=== PATIENT | male | born 1940 | race Caucasian/White ===

== ENCOUNTER 2019-01-01 04:44 | Inpatient (IN) ==
[2019-01-01] MEDS ORDERED: DOCUSATE SODIUM 100 MG CAPSULE PO PRN (07:18)
[2019-01-01] MEDS ORDERED: ONDANSETRON 4 MG/2 ML VIAL IV PRN (07:18)
[2019-01-01 07:49] LABS: Basophils # 0.1 10*3/uL (0.0-0.2); Basophils % 0.5 % (0.0-0.8); Eosinophils # 0.2 10*3/uL (0.0-0.87); Eosinophils % 1.5 % (0.00-10.9); Hematocrit 44.7 VOL% (42.0-52.0); Hemoglobin 14.7 GM/DL (14.0-18.0); Immature Granulocytes % 0.5 %; Immature Granulocytes Absolute 0.06 #; Lymphocytes # 1.2 10*3/uL (1.4-4.0); Lymphocytes % 10.4 % (21.2-54.2); Mean Corpuscular HGB Conc 32.9 GM/DL (32-36); Mean Corpuscular Hemoglobin 33 PG (27-34); Mean Corpuscular Volume 99.1 FL (87-102); Mean Platelet Volume 10.2 FL (9.6-12.0); Monocytes # 1.3 10*3/uL (0.11-0.8); Monocytes % 11.3 % (1.7-12.7); Neutrophils % 75.8 % (38.7-73.9); Platelet Count 121 T/CUMM (130-400); Red Blood Count 4.51 MC/CUMM (3.8-5.5); Red Cell Distribution Width 13.9 % (9.3-17.3); White Blood Count 11.8 T/CUMM (4-12)
[2019-01-01 08:28] LABS: Albumin 3.5 G/DL (3.4-5.0); Bilirubin,Total 1.3 MG/DL (0.2-1.0); Osmolality,Calculated 278.7 MOS/KG (273-304); Potassium 4.2 MMOL/L (3.5-5.1); Total Protein 7.1 G/DL (6.4-8.3)
[2019-01-01 08:47] LABS: Thyroid Stimulating Hormone 2.11 uIU/ml (0.358-3.74)
[2019-01-01] MEDS: ASPIRIN EC 81 MG TABLET PO SCH (08:55)
[2019-01-01] MEDS: CARVEDILOL 3.125 MG TABLET PO SCH ×2 (08:57→21:19)
[2019-01-01] MEDS: LOSARTAN 25 MG TABLET PO SCH (08:57)
[2019-01-01] MEDS: PANTOPRAZOLE 40 MG TABLET PO SCH (08:57)
[2019-01-01] MEDS ORDERED: KETOROLAC 30 MG/1 ML VIAL IV ONE (11:07)
[2019-01-01] MEDS ORDERED: ACETAMINOPHEN 325 MG TABLET PO PRN (13:01)
[2019-01-01] MEDS: cephALEXin 500 MG CAPSULE PO SCH ×2 (13:21→21:19)
[2019-01-01] MEDS: PREGABALIN 50 MG CAPSULE PO SCH (21:18)
[2019-01-02 04:42] LABS: Basophils # 0.1 10*3/uL (0.0-0.2); Basophils % 0.5 % (0.0-0.8); Eosinophils # 0.8 10*3/uL (0.0-0.87); Eosinophils % 8.6 % (0.00-10.9); Hematocrit 39.6 VOL% (42.0-52.0); Hemoglobin 13.2 GM/DL (14.0-18.0); Immature Granulocytes % 0.3 %; Immature Granulocytes Absolute 0.03 #; Lymphocytes # 1.9 10*3/uL (1.4-4.0); Lymphocytes % 20.5 % (21.2-54.2); Mean Corpuscular HGB Conc 33.3 GM/DL (32-36); Mean Corpuscular Hemoglobin 33 PG (27-34); Mean Corpuscular Volume 97.5 FL (87-102); Mean Platelet Volume 11.4 FL (9.6-12.0); Monocytes % 10.5 % (1.7-12.7); Neutrophils # 5.5 10*3/uL (1.4-7.4); Neutrophils % 59.6 % (38.7-73.9); Platelet Count 102 T/CUMM (130-400); Red Blood Count 4.06 MC/CUMM (3.8-5.5); Red Cell Distribution Width 13.7 % (9.3-17.3); White Blood Count 9.2 T/CUMM (4-12)
[2019-01-02 05:01] LABS: Albumin 3.1 G/DL (3.4-5.0); Bilirubin,Total 1.9 MG/DL (0.2-1.0); Calcium 8.5 MG/DL (8.5-10.1); Osmolality,Calculated 279.8 MOS/KG (273-304); Potassium 3.9 MMOL/L (3.5-5.1); Total Protein 6.5 G/DL (6.4-8.3)
[2019-01-02] MEDS: cephALEXin 500 MG CAPSULE PO SCH ×2 (09:38→21:59)
[2019-01-02] MEDS: PREGABALIN 50 MG CAPSULE PO SCH ×2 (09:38→22:02)
[2019-01-02] MEDS: ASPIRIN EC 81 MG TABLET PO SCH (09:38)
[2019-01-02] MEDS: CARVEDILOL 3.125 MG TABLET PO SCH ×2 (09:38→22:00)
[2019-01-02] MEDS: LOSARTAN 25 MG TABLET PO SCH (09:38)
[2019-01-02] MEDS: PANTOPRAZOLE 40 MG TABLET PO SCH (09:38)
[2019-01-02] MEDS ORDERED: ALUMINUM/MAGNES/SIMETH MAX STR 30 ML UDCUP PO PRN (13:18)
[2019-01-03 04:59] LABS: Basophils # 0.1 10*3/uL (0.0-0.2); Basophils % 0.7 % (0.0-0.8); Eosinophils # 1.1 10*3/uL (0.0-0.87); Eosinophils % 12.8 % (0.00-10.9); Hematocrit 42.9 VOL% (42.0-52.0); Hemoglobin 14.2 GM/DL (14.0-18.0); Immature Granulocytes % 0.5 %; Immature Granulocytes Absolute 0.04 #; Lymphocytes # 1.7 10*3/uL (1.4-4.0); Mean Corpuscular HGB Conc 33.1 GM/DL (32-36); Mean Corpuscular Hemoglobin 33 PG (27-34); Mean Corpuscular Volume 98.6 FL (87-102); Mean Platelet Volume 10.3 FL (9.6-12.0); Monocytes # 1.1 10*3/uL (0.11-0.8); Monocytes % 12.6 % (1.7-12.7); Neutrophils # 4.7 10*3/uL (1.4-7.4); Neutrophils % 53.4 % (38.7-73.9); Platelet Count 118 T/CUMM (130-400); Red Blood Count 4.35 MC/CUMM (3.8-5.5); Red Cell Distribution Width 13.6 % (9.3-17.3); White Blood Count 8.7 T/CUMM (4-12)
[2019-01-03 05:23] LABS: Eosinophils 16 % (0-10); Hypochromasia 1+; Lymphocytes 27 % (20-55); Segmented Neutrophils 51 % (50-85); Total Cells Counted 100
[2019-01-03 05:24] LABS: Atypical Lymphocytes Few; Bilirubin,Total 1.1 MG/DL (0.2-1.0); Calcium 8.8 MG/DL (8.5-10.1); Osmolality,Calculated 283.4 MOS/KG (273-304); Platelet Estimate Decreased; Total Protein 6.8 G/DL (6.4-8.3)
[2019-01-03 08:06] VITALS: BP 141/86
[2019-01-03] MEDS: cephALEXin 500 MG CAPSULE PO SCH (08:45)
[2019-01-03] MEDS: PANTOPRAZOLE 40 MG TABLET PO SCH (08:45)
[2019-01-03] MEDS: LOSARTAN 25 MG TABLET PO SCH (08:45)
[2019-01-03] MEDS: CARVEDILOL 3.125 MG TABLET PO SCH (08:45)
[2019-01-03] MEDS: ASPIRIN EC 81 MG TABLET PO SCH (08:45)
[2019-01-03] MEDS: PREGABALIN 50 MG CAPSULE PO SCH (08:46)
== END 2019-01-03 12:34 | disposition home or self-care (01) | DRG 74 ==
LOC: N.TELEN → OBSVTOIN 07:14 → SUATTDRO 07:14 → N.TELEN 20:46
PROVIDERS: ADMIT Internal Medicine; ATTEND Internal Medicine Cardiovascular Disease

== ENCOUNTER 2020-07-03 17:46 | Observation (INO) ==
[2020-07-03 18:22] LABS: Basophils # 0.1 10*3/uL (0.0-0.2); Basophils % 0.7 % (0.0-0.8); Eosinophils # 0.7 10*3/uL (0.0-0.87); Eosinophils % 7.8 % (0.00-10.9); Hematocrit 45.6 VOL% (42.0-52.0); Hemoglobin 15.4 GM/DL (14.0-18.0); Immature Granulocytes % 0.4 %; Immature Granulocytes Absolute 0.04 #; Lymphocytes # 2.9 10*3/uL (1.4-4.0); Lymphocytes % 30.8 % (21.2-54.2); Mean Corpuscular HGB Conc 33.8 GM/DL (32-36); Mean Corpuscular Volume 97.9 FL (87-102); Mean Platelet Volume 9.7 FL (9.6-12.0); Monocytes % 8.4 % (1.7-12.7); Neutrophils % 51.9 % (38.7-73.9); Platelet Count 211 T/CUMM (130-400); Red Blood Count 4.66 MC/CUMM (3.8-5.5); Red Cell Distribution Width 13.8 % (9.3-17.3); White Blood Count 9.4 T/CUMM (4-12)
[2020-07-03 18:50] LABS: Albumin 3.5 G/DL (3.4-5.0); Bilirubin,Total 0.4 MG/DL (0.2-1.0); Calcium 9.3 MG/DL (8.5-10.1); Osmolality,Calculated 275.7 MOS/KG (273-304); Total Protein 7.6 G/DL (6.4-8.3)
[2020-07-03 18:55] LABS: PT Patient Result 10.8 SECS (9.8-11.9); Partial Thromboplastin Time 30.5 SECS (23.9-33.8)
[2020-07-03] MEDS ORDERED: ENOXAPARIN 100 MG/ML SYRINGE SUBCUT STA (20:51)
[2020-07-03] MEDS ORDERED: ALUM/MAG/SIMETH/LIDO VISC 1:1 30 ML BOTTLE PO STA (20:51)
[2020-07-03] MEDS ORDERED: ONDANSETRON 4 MG/2 ML VIAL IV STA (20:51)
[2020-07-03] MEDS ORDERED: MORPHINE 4 MG/1 ML VIAL IV STA (20:51)
[2020-07-03] MEDS ORDERED: NITROGLYCERIN 2% OINT 1 INCH/GM PACK TOP STA (20:51)
[2020-07-03] MEDS ORDERED: ASPIRIN 325 MG TABLET PO STA (20:51)
[2020-07-03] MEDS ORDERED: hydrALAZINE 20 MG/1 ML VIAL IV STA (20:52)
[2020-07-03] MEDS ORDERED: LABETALOL 20 MG/4 ML SYRINGE IV STA (20:57)
[2020-07-03 21:14] LABS: INR 1.1; PT Patient Result 11.4 SECS (9.8-11.9)
[2020-07-03] MEDS ORDERED: MORPHINE 4 MG/1 ML VIAL IV PRN (23:46)
[2020-07-03] MEDS ORDERED: ONDANSETRON 4 MG/2 ML VIAL IV PRN (23:46)
[2020-07-04] MEDS: NITROGLYCERIN 2% OINT 1 INCH/GM PACK TOP SCH ×4 (01:44→17:09)
[2020-07-04 06:52] LABS: Bilirubin,Total 0.8 MG/DL (0.2-1.0); Calcium 9.1 MG/DL (8.5-10.1); Osmolality,Calculated 278.4 MOS/KG (273-304); Risk Ratio 4.33; Total Protein 6.5 G/DL (6.4-8.3); VLDL CHOLESTEROL 13.8 MG/DL
[2020-07-04] MEDS: ENOXAPARIN 100 MG/ML SYRINGE SUBCUT SCH ×2 (08:26→20:47)
[2020-07-04] MEDS ORDERED: PANTOPRAZOLE 40 MG TABLET PO SCH (09:00)
[2020-07-04 10:40] LABS: Troponin I 0.364 NG/ML (0.00-0.045)
[2020-07-04] MEDS: METOPROLOL SUCCINATE XL 25 MG TABLET PO SCH (11:33)
[2020-07-04] MEDS: ASPIRIN EC 81 MG TABLET PO SCH (11:33)
[2020-07-04] MEDS: LOSARTAN 25 MG TABLET PO SCH (11:33)
[2020-07-04] MEDS ORDERED: traMADol 50 MG TABLET PO PRN (12:01)
[2020-07-04] MEDS ORDERED: ACETAMINOPHEN 325 MG TABLET PO PRN (12:05)
[2020-07-04] MEDS: predniSONE 5 MG TABLET PO SCH (12:15)
[2020-07-04 13:57] LABS: Troponin I 0.329 NG/ML (0.00-0.045)
[2020-07-04 16:25] LABS: Troponin I 0.331 NG/ML (0.00-0.045)
[2020-07-04] MEDS: PANTOPRAZOLE 40 MG TABLET PO SCH (20:47)
[2020-07-04] MEDS: AZITHROMYCIN 250 MG TABLET PO SCH (20:47)
[2020-07-05] MEDS: NITROGLYCERIN 2% OINT 1 INCH/GM PACK TOP SCH (01:13)
[2020-07-05] MEDS: ASPIRIN EC 81 MG TABLET PO SCH (08:43)
[2020-07-05] MEDS: METOPROLOL SUCCINATE XL 25 MG TABLET PO SCH (08:43)
[2020-07-05] MEDS: ENOXAPARIN 100 MG/ML SYRINGE SUBCUT SCH (08:43)
[2020-07-05] MEDS: PANTOPRAZOLE 40 MG TABLET PO SCH (08:43)
[2020-07-05] MEDS: LOSARTAN 25 MG TABLET PO SCH (08:43)
[2020-07-05] MEDS: AZITHROMYCIN 250 MG TABLET PO SCH (08:43)
[2020-07-05] MEDS: predniSONE 5 MG TABLET PO SCH (08:43)
[2020-07-05 09:37] VITALS: BP 142/96
== END 2020-07-05 12:24 | disposition home or self-care (01) ==
LOC: N.EDINP 17:46 → N.ED 17:46 → N.TELEN 07-04 00:35 → N.2W 07-05 12:05
PROVIDERS: ADMIT Internal Medicine; ATTEND Internal Medicine